=== PATIENT | male | born 1975 | race Caucasian/White ===

== ENCOUNTER 2017-09-03 18:41 | Emergency (ER) | payer OTHER ==
--- NOTE | 2017-09-03 19:17 | ED Physician Chart ---
ED Chief Complaint/HPI - Patient Information Date Seen:: 09/03/17 Time Seen:: 19:05 Chief Complaint:: right testicular pain History of Present Illness:: Patient had onset last night of right testicular pain. Pain radiates 2-3 inches superiorly to the lower abdomen. No chills, fever or dysuria. Allergies:: Allergies Allergy/AdvReac Type Severity Reaction Status Date / Time No Known Allergies Allergy Verified 09/03/17 19:03 Vitals:: Vital Signs - 8 hr 09/03/17 18:50 Temp 97.9 F HR 66 RR 18 BP 118/75 O2 Sat % 97 Historian:: Patient Review:: Nurse's Note Reviewed ED Review of Systems - Review of Systems General/Constitutional: No fever, No chills Skin: No skin lesions Head: No headache Eyes: No loss of vision ENT: No earache Neck: No neck pain Cardio Vascular: No chest pain, No palpitations Pulmonary: No SOB GI: No nausea, No vomiting G/U: No dysuria Musculoskeletal: No bone or joint pain Endocrine: No polyuria, No polydipsia Psychiatric: No prior psych history, No anxiety Hematopoietic: No bruising, No lymphadenopathy Allergic/Immuno: No urticaria Neurological: No syncope, No focal symptoms ED Past Medical History - Past Medical History Past Medical History: Other (patient has had similar pain previously diagnosed once as epididymitis) Family History: None Social History: Non Smoker, Alcohol, Other (occasional alcohol use only) Surgical History: None Psychiatricy History: None Medication: None Family Medical History - Family Member Mother Age: 65 Hx Family Cancer: No Hx Family Coronary Artery Disease: No Hx Family Congestive Heart Failure: No Hx Family Hypertension: No Hx Family Stroke: No Hx Family Diabetes: No Hx Family Seizures: No Hx Family Dementia: No Hx Family AIDS: No Hx Family HIV: No Hx Family COPD: No Hx Family Hepatitis: No Hx Family Psychiatric Problems: No Hx Family Tuberculosis: No ED Physical Exam - Physical Examination General/Constitutional: Well-developed, well-nourished, Alert, No distress Head: Atraumatic Eyes: Lids, conjuctiva normal, PERRL Skin: Nl inspection, No rash, No skin lesions, No ecchymosis ENMT: External ears, nose nl Neck: No nuchal rigidity Respiratory: Nl effort/Exclusion, Clear to Auscultation, No Wheeze/Rhonchi/Rales Cardio Vascular: RRR, No murmur, gallop, rubs GI: No organomegaly, No hernia, Normal BS's, Nondistended, No mass/bruits Other GI comments:: Right groin tenderness : No CVA tenderness Other comments:: Normal male uncircumcised pattern; both testes about 3 x 2-1/2 cm. Right testicle plus or minus minimally firmer than left and tender Extremities: Normal digits & nails Neuro/Psych: No focal deficits ED Labs/Radiology/EKG Results - Lab Results Results: Laboratory Results - last 24 hr 09/03/17 18:56 Urine Source [place] Urine Color YELLOW Urine Clarity CLEAR Urine pH 6.5 Ur Specific [place] 1.020 Urine Protein NEGATIVE Urine Glucose (UA) NEGATIVE Urine Ketones NEGATIVE Urine Blood NEGATIVE Urine Nitrate NEGATIVE Urine Bilirubin NEGATIVE Urine Urobilinogen 0.2 Ur Leukocyte Esterase NEGATIVE Urine RBC NONE SEEN Urine WBC NONE SEEN Ur Epithelial Cells NONE SEEN Urine Bacteria NONE SEEN - Radiology Results Results: Increased blood flow to right testes compatible with epididymitis ED Septic Shock - . Is Septic Shock (SBP<90, OR Lactate>4 mmol\L) present?: No - <6hrs of presentation: Vital Signs: Vital Signs - 8 hr 09/03/17 18:50 Temp 97.9 F HR 66 RR 18 BP 118/75 O2 Sat % 97 ED Reassessment (Disposition) - Reassessment Reassessment Condition:: Unchanged - Diagnosis Diagnosis:: Epididymitis - Aftercare/Follow up Instructions Medication Prescribed:: Prescription for Cipro 500 mg twice a day for 10 days and [place] 10/325 #16 to take 1 4 times a day as necessary for pain - Patient Disposition Discharge/Transfer:: Home Condition at Disposition:: Stable, Unchanged
[2017-09-03 19:31] LABS: URINE MICROSCOPIC INDICATED? YES; URINE SOURCE MIDSTREAM
[2017-09-03 19:38] LABS: URINE BILIRUBIN NEGATIVE (NEGATIVE); URINE BLOOD NEGATIVE (NEGATIVE); URINE GLUCOSE (UA) NEGATIVE (NEGATIVE); URINE KETONE NEGATIVE (NEGATIVE); URINE LEUKOCYTE ESTERASE NEGATIVE (NEGATIVE); URINE NITRATE NEGATIVE (NEGATIVE); URINE PH 6.5 (4.6 - 8.0); URINE PROTEIN NEGATIVE (NEGATIVE); URINE UROBILINOGEN 0.2 E.U./dL (0.2 - 1.0)
[2017-09-03 19:45] LABS: URINE CLARITY CLEAR (CLEAR); URINE COLOR YELLOW
[2017-09-03 19:46] LABS: URINE BACTERIA NONE SEEN /hpf (NONE SEEN); URINE EPITHELIAL CELLS NONE SEEN /lpf (FEW); URINE RBC NONE SEEN /hpf (0-5); URINE WBC NONE SEEN /hpf (0-5)
--- NOTE | 2017-09-04 08:00 | Diagnostic Imaging Report ---
Testicular/scrotal ultrasound HISTORY: Pain The right testis measures 4.0 x 2.3 x 2.9 cm. No focal parenchymal lesions. Normal testicular vascular flow. Is mild fullness of the right epididymis. No focal lesions are seen. The left epididymis appears normal in size. A 4 mm sonolucent focus is noted adjacent to the epididymis probably related to a spermatocele. Small bilateral hydroceles are seen. IMPRESSION: 1. Mild asymmetric increase in size of the right epididymis compared to the left. Inflammatory change (epididymitis) cannot be excluded. Clinical correlation is needed. 2. No focal intratesticular abnormalities 3. Small bilateral hydroceles 4. 4 mm sonolucent focus adjacent to the left epididymis suggesting a possible spermatocele.
== END 2017-09-03 21:55 | disposition home or self-care (01) ==
LOC: ER 18:41
DX: N45.1 Epididymitis (principal)
CPT/HCPCS: 76870-TC; 81001-TC; Z7610

== ENCOUNTER 2017-11-14 17:50 | Emergency (ER) | payer OTHER ==
--- NOTE | 2017-11-14 17:59 | ED Physician Chart ---
ED Chief Complaint/HPI - Patient Information Date Seen:: 11/14/17 Time Seen:: 17:55 Chief Complaint:: SHORT OF BREATH AND COUGH FOR PAST MONTH History of Present Illness:: THIS 42 YEAR OLD MALE PRESENTS WITH A ONE MONTH HX OF PRODUCTIVE COUGH (YELLOW TO GREEN SPUTUM) AND INTERMITTENT DIFFICULTY BREATHING. THE SYMPTOMS ARE NOT PRECIPITATED BY EXERTION OR COLD. THE PT HAS A PAST HISTORY OF ASTHMA DURING HIS TEENS THAT REMINDS HIM OF HIS CURRENT TROUBLE BREATHING. HE DENIES ANY FEVER OR CHILLS. HE HAS HAD NO HEMOPTYSIS, CHEST PAIN, ORTHROPNEA, OR PND. HE DOES NOT SMOKE AND HE HAS NO EXPOSURE TO DUST OR RESPIRATORY IRRITANTS. NO NIGHT SWEATS. Allergies:: Allergies Allergy/AdvReac Type Severity Reaction Status Date / Time No Known Allergies Allergy Verified 09/03/17 19:03 ED Review of Systems - Review of Systems General/Constitutional: No fever, No chills, No weight loss, No diaphoresis, No edema, No loss of appetite Skin: No skin lesions, No rash Head: No headache, No light-headedness Eyes: No loss of vision, No pain, No diplopia ENT: No nasal drainage, No sore throat, No tinnitus Neck: No neck pain, No stiffness, No mass noted Cardio Vascular: No chest pain, No palpitations, No PND, No orthopnea, No edema Pulmonary: SOB, Cough, Sputum, Wheezing GI: No nausea, No vomiting, No diarrhea, No pain, No hematemesis G/U: No dysuria, No hematuria Musculoskeletal: No bone or joint pain, No back pain, No muscle pain Endocrine: No polyuria, No polydipsia Psychiatric: Prior psych history, No suicidal ideation Hematopoietic: No bruising, No lymphadenopathy Allergic/Immuno: No urticaria, No angioedema Neurological: No syncope, Focal symptoms, Weakness, No paresthesia, No headache , No seizure, No dizziness, No confusion, No vertigo ED Past Medical History - Past Medical History Past Medical History: Asthma/COPD, Other ( No past medical history of DVT for pulmonary embolism.) Social History: Non Smoker, Employed Surgical History: None Psychiatricy History: None Medication: Reviewed Family Medical History - Family Member Mother Hx Family Cancer: No Hx Family Coronary Artery Disease: No Hx Family Congestive Heart Failure: No Hx Family Hypertension: No Hx Family Stroke: No Hx Family Diabetes: No Hx Family Seizures: No Hx Family Dementia: No Hx Family AIDS: No Hx Family HIV: No Hx Family COPD: No Hx Family Hepatitis: No Hx Family Psychiatric Problems: No Hx Family Tuberculosis: No ED Physical Exam - Physical Examination General/Constitutional: Awake, Well-developed, well-nourished, Alert, No distress, GCS 15, Non-toxic appearing, Ambulatory Head: Atraumatic Eyes: Lids, conjuctiva normal, PERRL, EOMI Skin: Nl inspection, No rash, No skin lesions, No ecchymosis, Well hydrated, No lymphadenopathy ENMT: External ears, nose nl, Lips, teeth, gums nl Neck: Nontender, No JVD, No nuchal rigidity, No mass, No stridor Respiratory: Nl effort/Exclusion Other Respiratory comments:: PT WITH MILD SCATTERED WHEEZING. NO RALES OR RONCHI. GOOD AIR EXCHANGE IN ALL LUNG BENNETT. NO DECREASED BS IN BASES OR EITHER LUNG. Cardio Vascular: RRR, No murmur, gallop, rubs, NL S1 S2 Other Cardio Vascular comments:: Good pulses all four extremities. No peripheral edema. tenderness in the Gottlieb' s sign is negative. GI: No tenderness/rebounding/guarding, No organomegaly, No hernia, Nondistended , No mass/bruits, No McBurney tenderness Other GI comments:: Rectal exam deferred at my discretion. : No CVA tenderness, NL external genitalia Extremities: No tenderness or effusion, Full ROM, normal strength in all extremities, No edema Neuro/Psych: Alert/oriented, Normal sensory exam, Normal motor strength, Judgement/insight normal, Mood normal, Normal gait, No focal deficits Misc: Normal back, No paraspinal tenderness ED Labs/Radiology/EKG Results - Lab Results Results: Single view AP chest x-ray: No cardiomegaly and no CHF. No areas of pulmonary consolidation. No pneumothorax. No mediastinal widening. Impression: No acute cardiopulmonary findings. - Radiology Results Comments:: EKG: NSR with no ectopy in the 70 range. Patient has right axis deviation of the QRS. ID interval, are normal. Minimal ST segment elevation precordial leads suggestive of early depolarization. IMPRESSION: no acute ischemic findings. ED Assessment - Assessment General Assessment: CASE SUMMARY: this 42-year-old male has a one-month history of productive cough and shortness of breath. His past medical history and that he has had asthma as a Teen. denies any fever, chills, hemoptysis or chest pain. His chest x-ray shows no cardiomegaly or evidence for CHF. His EKG shows normal sinus rhythm with no ischemic findings. It is normal except for right axis deviation. The patient was diagnosed with bronchitis and given a prescription for albuterol MDI. He was also given a prescription for a azithromycin due to the productive nature of his cough and the duration of one month. The patient has a primary care physician and he was advised to follow up with him within the next week or 10 days. He was further advised return to the emergency department for any severe respiratory distress or chest pain. Discharged in stable condition. DDX COUGH and SHORTNESS OF BREATH: NOT Pneumonia based on no history of fever or chills and chest x-ray showing no areas of infiltrator consolidation. NOT Pneumothorax based on negative chest x-ray. NOT CHF Based on the patient's history, physical examination and negative chest x-ray. NOT Cardiomyopathy based on history, physical examination and chest x-ray. NOT Cardiac ischemia based on the patient's history and physical exam. Furthermore there was no evidence of cardiac ischemia on the EKG. ED Septic Shock - . Is Septic Shock (SBP<90, OR Lactate>4 mmol\L) present?: No ED Reassessment (Disposition) - Reassessment Reassessment Condition:: Unchanged - Diagnosis Diagnosis:: BRONCHITIS, MOST LIKELY secondary to asthma. A - Aftercare/Follow up Instructions Aftercare/Follow-Up Instructions:: Counseled pt regarding lab results/diagnosis & need follow up ED Discharge Plan - Patient Disposition Admit/Discharge/Transfer: PT DISCHARGED HOME Condition at Disposition: Stable Prescriptions: Albuterol Nebulizer 2.5mg/3mL [Albuterol Neb UD*] 2.5 mg IH Q4HR PRN #1 ud PRN Reason: Wheezing Azithromycin [Zithromax] 250 mg PO DAILY #6 tab Instructions: Bronchitis, [id number]
[2017-11-14] MEDS ORDERED: Albuterol/Ipratropium Neb 3 ML AERS HHN ONE (18:37)
--- NOTE | 2017-11-15 10:06 | Diagnostic Imaging Report ---
Portable chest x-ray History: Shortness of breath, cough Allowing for portable technique the heart size is normal. No focal pulmonary parenchymal processes. No hilar or mediastinal abnormalities. Impression: No acute abnormalities.
== END 2017-11-14 19:05 | disposition home or self-care (01) ==
LOC: ER 17:50
DX: J40 Bronchitis, not specified as acute or chronic (principal); J44.9 Chronic obstructive pulmonary disease, unspecified; J45.909 Unspecified asthma, uncomplicated
CPT/HCPCS: 71045-TC; 93005; Z7502